=== PATIENT | female | born 1990 | race Caucasian/White ===

== ENCOUNTER 2020-04-14 17:53 | Inpatient (IN) | payer OTHER, SELFPAY ==
[2020-04-14] VITALS (8 sets, daily range): BP systolic 120–148; BP diastolic 68–94; PULSE 86–111; TEMP 36.4
[2020-04-14] MEDS: DINOPROSTONE 10 MG VAG INSERT VAGINAL (19:21)
--- NOTE | 2020-04-14 19:34 | LDADM ---
This patient, Fabiola Heck, was admitted to Labor/Delivery/Recovery 108 on 04/14/20 at 17:53. Plans for labor, pain management and were discussed with patient. Patient/family oriented to hospital policies and general routines including ID bracelet, bed and alarms, visiting hours, pain management, procedures, bathroom and other care routines, personal items, smoking policy, room service/diet and guest tray routines, security routines, and visiting hours. Patient/Family are encouraged to report perceived risks to care and to ask questions if they do not understand what they are told or what they should do. See OBIX for further documentation.
[2020-04-14 19:56] LABS: Basophils Percent Auto 0.3 % (0.2-1.2); Eosinophils Absolute Auto 0.1 K/mm3 (0-0.3); Eosinophils Percent Auto 0.4 % (0-4.4); Hematocrit 35.1 % (37.0-47.0); Hemoglobin 12.1 g/dL (12.0-15.0); Immature Granulocyte Absolute 0.04 K/mm3 (0.00-0.031); Immature Granulocyte Percent A 0.3 % (0-0.5); Lymphocytes Absolute Auto 2.46 K/mm3 (0.9-3.2); Lymphocytes Percent Auto 20.7 % (18.3-44.2); Mean Corpuscular HGB Conc 34.5 g/dl (32-36); Mean Corpuscular Hemoglobin 28.5 pg (26-34); Mean Corpuscular Volume 82.8 fl (80-100); Mean Platelet Volume 10.7 fl (7.4-10.4); Monocytes Absolute Auto 0.7 K/mm3 (0.1-0.6); Monocytes Percent Auto 5.7 % (2.6-8.5); Neutrophils Absolute Auto 8.6 K/mm3 (1.3-6.7); Neutrophils Percent Auto 72.6 % (45.5-73.1); Platelet Count Result 256 k/mm3 (150-375); Red Blood Count 4.24 M/mm3 (4.2-5.4); Red Cell Distribution Width 13.7 % (11.5-14.5); White Blood Count 11.9 K/mm3 (4.5-10.0)
[2020-04-15] VITALS (53 sets, daily range): BP systolic 94–138; BP diastolic 56–92; PULSE 74–192; RESP 18; TEMP 36.3–36.8; O2SAT 97–100
--- NOTE | 2020-04-15 04:59 | WPDOBADMIT ---
Obstetrics - Admit Note Admission Note: record reviewed. Additions to the history and/or subsequent changes in the physical findings follow. 30 y/o at 39 1/7 weeks here for induction of labor. Cervidil overnight. Feeling intermittent contractions. GBS neg. AVSS NST reactive TOCO: contractions irregularly ABD soft, nontender, gravid, vertex EXT nontender Cervix 4-5/80/-1. AROM with clear fluid. Vertex. A: IUP at term, desiring induction of labor. P: Oxytocin. Anticipate .
[2020-04-15] MEDS: LACTATED RINGERS 1,000 ML 125 ML IV CONT ×2 (06:14→06:54)
[2020-04-15] MEDS: OXYTOCIN 30 UNITS/NS 500 ML 30 UNITS/500 ML BAG IV CONT (06:15)
[2020-04-15] MEDS: LEVOTHYROXINE SODIUM 75 MCG TABLET 225 MCG PO (07:18)
[2020-04-15 08:48] LABS: Rapid Plasma Reagin Non-Reactive (NonReactive)
--- NOTE | 2020-04-15 10:03 | PM.OBPRVD ---
OB - Delivery Note Procedure Delivery date: 04/15/20 Procedure: Induction of labor with Induction method: per pitocin protocol and other (Cervidil) Delivery monitor: external FHT and external uterine Route of delivery: Episiotomy description: Midline Delivery repair: vicryl (3-0) Specimen: Yes (cord blood) Estimated blood loss (mL): 120 Anesthesia type: Epidural Disposition: PACU Complications: None Narrative: 30 y/o at 39 1/7 weeks gestation who presented to the hospital for induction of labor. Cervidil was placed overnight. The following morning, the Cervidil was withdrawn and oxytocin was administered intravenously. Amniotomy was performed with return of clear fluid. She received an epidural for pain control. Her labor progressed and her cervix dilated completely. She pushed with good effort. A midline episiotomy was made and she delivered the infant's head to the perineum from JACQUELINE position, followed by the body. The nose and mouth were bulb suctioned. After a delay, the cord was clamped and cut. The infant was handed off the field. Cord blood was collected. The placenta delivered spontaneously and was grossly normal in appearance. The usual 3 vessel cord was noted. The MLE was free of extension. This was reapproximated using 3 0 Vicryl in the usual layered fashion. A shallow right-sided periurethral laceration was repaired with a single, interrupted figure of eight suture of the same material. Excellent hemostasis resulted as did excellent reapproximation of the normal anatomy. Needle and instrument counts were correct. The patient was taken to recovery room in stable condition. The infant went to the nursery in stable condition. I was present and scrubbed for the entire delivery. Baby Date of : 04/15/20 Time of : 09:46 Weeks of gestation at delivery: 39 Infant gender: Male Weight (pounds): 8 Weight (ounces): 1 presentation: vertex Placenta delivery description: Spontaneous and Normal Configuration cord vessel description: 3 Vessels and Nuchal Cord score one minute: 8 score five minutes: 9
--- NOTE | 2020-04-15 10:07 | PM.OBDSVD ---
DS: Admitting Diagnosis Admitting Diagnosis Admitting Diagnosis: IUP at 39 weeks DS: Discharge Diagnosis Discharge Diagnosis (1) (normal spontaneous vaginal delivery): Code(s): O80 - Encounter for full-term uncomplicated delivery Status: Acute OB - DS: Summary OB Procedures : None OB Procedures Intrapartum: Spontaneous Vag Delivery OB Procedures: : None Time Spent with Patient Time attestation: Total time spent providing and/or coordinating discharge services: DS: Data Data Completed and Pending Labs on day of discharge: Labs from last 24 hours 04/14/20 04/14/20 04/14/20 19:50 19:12 19:12 WBC 11.9 H RBC 4.24 Hgb 12.1 Hct 35.1 L MCV 82.8 MCH 28.5 MCHC 34.5 RDW 13.7 Plt Count 256 MPV 10.7 H Immature Gran % (Auto) 0.3 Neut % (Auto) 72.6 Lymph % (Auto) 20.7 [place] % (Auto) 5.7 Eos % (Auto) 0.4 Baso % (Auto) 0.3 Lymph # (Auto) 2.46 [place] # (Auto) 0.7 H Eos # (Auto) 0.1 Baso # (Auto) 0.0 Abs Immat Gran (auto) 0.04 H Absolute Neuts (auto) 8.6 H Absolute Nucleated RBC 0.0 Nucleated RBC % 0.0 RPR Non-reactive Blood Type B Positive Antibody Screen Negative Discharge Plan Discharge Attending physician on discharge: Scooter Govea Discharging Clinician: Scooter Govea Patient Disposition: Home, Self-Care Activity: pelvic rest Diet: regular Discharge Instructions: Education: Mom and Baby Guide Given to: Mother Follow-Up: Call your delivering provider's office for an appointment to be seen in: 6 Weeks Mom and baby should come to the [facility] for the follow-up appointment. Appointment Date/Time: April 17, 2020 at 9:00 am What to expect at your follow-up visit: Blood Pressure Check Call [phone] if you are unable to keep your appointment time. BREAST CARE: 1. Wear a snug supportive bra. 2. For engorgement discomfort: Breast Feeding: A. Apply warm moist washcloths B. Express milk as needed to relieve engorgement C. Wear loose clothing Bottle Feeding: A. May apply ice packs 3. For sore nipples: A. Identify correct latch-on B. Apply warm moist washcloths before and after nursing C. Air dry nipples after nursing D. May apply Lansinoh cream to nipples EPISIOTOMY/PERINEAL CARE: 1. Until bleeding stops, use your katya bottle after urinating 2. Change your pad frequently throughout the day 3. You may take sitz baths several times a day (fill your bathtub with warm water and soak for 20 minutes.) Do NOT bathe in the water 4. No tub baths until seen by your physician - You may shower ACTIVITY: 1. Rest as much as possible. 2. Do not exercise or lift anything heavier than your baby (such as laundry or other children.) 3. Avoid stairs or driving as much as possible. 4. Do not put anything into the vagina. No douching, tampons, or sexual activity until seen by physician. NOTIFY PHYSICIAN IF YOU HAVE ANY QUESTIONS OR IF ANY OF THE FOLLOWING SYMPTOMS OCCUR: 1. If your episiotomy becomes red, swollen, or more painful than what you have experienced in the hospital. 2. If your vaginal bleeding becomes foul smelling. 3. If your vaginal bleeding becomes more heavy than a period or if your bleeding changes from pink to bright red. However, you may pass an occasional walnut-sized clot once or twice for the first week . 4. If you experience a sharp, shooting pain in you calves. 5. If you discover a hard, reddened area on your breast or if you experience flu-like symptoms. 6. Call for temp of 100.4 or greater DIET: 1. Eat regular, well-balanced meals. 2. Drink plenty of fluids daily. If , drink to thirst.Call or return if temperature above 100.4? F, increased abdominal pain, increased vaginal bleeding or any new problems. Stand Alone Form
[2020-04-15] MEDS: OXYTOCIN 30 UNITS/NS 500 ML 30 UNITS/500 ML BAG 125 UNITS IV CONT (10:29)
[2020-04-15] MEDS: BENZOCAINE 20% AER SPR (*SP) 56 GM CAN 1 SPRAY TOPICAL (12:40)
[2020-04-15] MEDS: WITCH HAZEL 40 PADS 1 PAD TOPICAL (12:40)
[2020-04-15] MEDS: DIBUCAINE 1% OINTMENT 30 GM TUBE 1 APPLIC TOPICAL (12:41)
--- NOTE | 2020-04-15 14:05 | PC.NURSE ---
Mother called out for assist with waking for feeding. Mother reports first child for several months without difficulties. Consulted with patient, reviewed feeding cues, frequencies, duration of feedings, feeding elimination flow sheet, and signs of adequate intake. Demonstrated stimulation techniques to wake for feeding, easily awoken. Assisted with infant to breast. Reviewed positioning/alignment in cross cradle, holding breast in U hold and guided asymmetrical latch on. Discussed rational for each. Infant was able to latch correctly. Infant nursed eagerly, with steady draws and occasional swallowing noted. Reviewed signs of a correct latch, effective nursing and suck swallow ratio. was able to maintain latch without discomfort to mother. Nipple care reviewed. Suggested to stimulate to keep awake and interested in nursing for increased intake and assist maintaining deep latch. Instructed mother to call out for RN assistance if she is unable to latch infant for feeding or she has discomfort with nursing. Instructed feeding should be initiated three hours from start of last feeding or if feeding cues are noted before. Mother voiced understanding of information shared.
--- NOTE | 2020-04-15 14:29 | OBPPTRN ---
Patient transferred to post room #278 via W/C @ 1074. Support person present. Oriented to unit, room, information board, rooming in, admission packet and security measures. Patient verbalizes understanding.
[2020-04-15] MEDS: IBUPROFEN 600 MG TABLET PO ×2 (15:15→21:34)
[2020-04-15] MEDS: DOCUSATE SODIUM 100 MG CAPSULE PO (15:16)
[2020-04-15] MEDS: TETANUS,DIPHTHERIA,AC PERTUSSIS ADULT (0.5 ML) BOOSTRIX IM (21:36)
[2020-04-16] MEDS: IBUPROFEN 600 MG TABLET PO ×2 (04:03→11:26)
[2020-04-16 05:26] LABS: Hematocrit 35.5 % (37.0-47.0)
[2020-04-16 07:50] VITALS: BP 122/80; PULSE 86; RESP 16; TEMP 36.9; O2SAT 98
[2020-04-16] MEDS: DOCUSATE SODIUM 100 MG CAPSULE PO (07:55)
[2020-04-16] MEDS: MULTIVIT/MIN/PREN/FOL AC/IRON TABLET 1 TAB PO (07:56)
[2020-04-16] MEDS: ACETAMINOPHEN 325 MG TABLET 650 MG PO (07:56)
[2020-04-16 08:00] VITALS: PULSE 86; RESP 16; O2SAT 98
[2020-04-16] MEDS: LEVOTHYROXINE SODIUM 25 MCG TABLET PO (08:00)
[2020-04-16] MEDS: LEVOTHYROXINE SODIUM 100 MCG TABLET 200 MCG PO (08:00)
--- NOTE | 2020-04-16 08:00 | PC.NURSE ---
PT introductions made and plan of care discussed per post , pain management, breast feeding, daily care activities and pending discharge to home. PT verbalized understanding of such care.
--- NOTE | 2020-04-16 09:34 | WPDANLDPN2 ---
Anes-Prog Note L&D Date/Time: 04/16/20 09:34 Comfortable throughout: labor and delivery Neuraxial method: epidural Epidural/Spinal procedure site: clean & non-tender Neuro status: Neuro function grossly intact. Cardiovascular status: normal Respiratory status: normal Airway patency: baseline Mental status: baseline Post-Op hydration status: normal Vital Signs: Last Vital Signs Temp 36.9 C 04/16/20 07:50 Pulse 86 04/16/20 08:00 Resp 16 04/16/20 08:00 BP 122/80 04/16/20 07:50 Pulse Ox 98 04/16/20 08:00 Post-procedural complaints: none Patient feedback: Patient satisfied with anesthetic care.
--- NOTE | 2020-04-16 13:03 | PM.OBPNVD ---
OB - PN: Subj Subjective Date/time seen: 04/16/20 13:03 Narrative: Pain OK. Wants circumcision for son. Would like to go home. OB - PN: Obj Data Labs CBC & Chem 7: 04/16/20 04:00 Labs: Laboratory Results - last 24 hr 04/16/20 04:00 Hgb 12.0 Hct 35.5 L OB - PN A/P Plan Comments: A: PPD#1, doing well. P: Home to f/u 6 weeks. Reviewed circ. Exam Psych: Other: AVSS ABD soft, nontender, fundus firm EXT nontender
--- NOTE | 2020-04-16 13:45 | PC.NURSE ---
Mother is able to independently latch infant with appropriate positioning/alignment. She denies any nipple discomfort, is feeding as required and waking to feed if needed. has had 9 effective feedings in the past 24 hours, and is currently meeting outcomes for weight, output, jaundice and feeding frequencies. Mother states she feels confident to continue effective at home. Reviewed transition to breast milk, signs of adequate intake, and engorgement/relief. Instructed to call ICP if intake/output less than required. Reviewed regular medications mother is taking. Information provided per Carol Ann. Reviewed community resources on the [facility] website and in the Mom/Baby guide. Information on outpatient services provided. Mother has no further questions at this time.
--- NOTE | 2020-04-16 14:30 | PC.NURSE ---
PT received discharge instructions per protocol and verbalized understanding of such instructions.
--- NOTE | 2020-04-16 15:15 | PC.NURSE ---
PT discharged to home ambulatory accompanied by spouse and to waiting car. Follow up appts confirmed
[2020-04-17 09:40] VITALS: BP 114/77; PULSE 83; RESP 16; TEMP 37.1; O2SAT 99
== END 2020-04-16 15:15 | disposition home or self-care (01) | DRG 807 ==
LOC: ANHLDR 04-15 10:07 → ANHOB2 04-15 12:54
PROVIDERS: Admitting Provider Obstetrics & Gynecology; Visit Provider Obstetrics & Gynecology
DX: O99.284 Endocrine, nutritional and metabolic diseases complicating childbirth (principal); Z37.0 Single live birth; Z3A.39 39 weeks gestation of pregnancy; E03.9 Hypothyroidism, unspecified
CPT/HCPCS: 36415; 85014; 85018; 85025; 86592; 86850; 86900; 86901; 90715; A9270; J2590; J2795; J7120